=== PATIENT | male | born 1935 | race Caucasian/White ===

== ENCOUNTER 2020-11-12 14:31 | Emergency (ER) | payer OTHER, BC, MEDICARE, SELFPAY ==
--- NOTE | ~2020-11-12 | XR_ITS ---
EXAMINATION: XR CHEST CLINICAL INFORMATION: Chest pain COMPARISON: None available. Correlation with prior x-ray report 01/03/2011 TECHNIQUE: 2 views of the chest were obtained. FINDINGS: Normal cardiomediastinal silhouette. Lungs are well-expanded. Mild streaky bibasilar opacities suggesting atelectasis. No focal consolidation. No effusion, edema or pneumothorax. Thoracic spine degeneration. XR/XR chest 2V IMPRESSION: Mild bibasilar streaky opacities suggesting atelectasis. No dense consolidation.
--- NOTE | ~2020-11-12 | US_ITS ---
EXAMINATION: US VENOUS ULTRASOUND WITH DOPPLER LOWER EXTREMITY, LEFT CLINICAL INFORMATION: Swelling left leg COMPARISON: None TECHNIQUE: Ultrasound of the deep veins is performed from the hip to the calf with compression sonography and color and pulse Doppler assessment. Spectral analysis with color-flow imaging is performed. FINDINGS: There is a areas of chronic partially adherent thrombus in the distal left superolateral femoral vein. The caliber of the superficial vein is smaller as well. The popliteal, posterior tibial and the peroneal veins appear patent. The right common femoral vein is patent as well. If the patient's symptoms persist, followup ultrasound in 5 days 7 days might be of value to exclude proximal propagation from a non-visualized calf vein. US/US venous duplex LE LT IMPRESSION: Non occlusive adherent thrombus seen throughout the left superficial femoral vein. The findings are suggestive of likely previous DVT, ? treated are not. There are no previous exam available for comparison. The left calf veins are patent. No Calzada's cyst seen.
--- NOTE | ~2020-11-12 | CT_ITS ---
EXAMINATION: CT CHEST ANGIOGRAM PE PROTOCOL CLINICAL INFORMATION: , Reason for Exam SOb/CP, h/o lung cancer, r/o PE COMPARISON: No prior studies available. TECHNIQUE: Volumetric imaging was performed through the chest. Reformatted coronal and sagittal imaging was performed. 3-D MIP images performed at a dedicated separate workstation. This CT examination was performed using dose optimization techniques as appropriate, variously including the following: *Automated exposure control *Adjustment of mA and/or kV according to patient size (this includes techniques or standardized protocols for targeted exams where dose is matched to indication/reason for exam; i.e. extremities or head) *Use of iterative reconstruction technique CONTRAST: 55 mL Omnipaque 350 injected. DLP: 243 FINDINGS: PULMONARY ARTERIES: There are no central emboli. Some of the small peripheral branches are not opacified probably artifactual flow artifact. No CT evidence of infarct. LINES/TUBES: None LUNGS: Lung Parenchyma: There is bilateral diffuse advanced pulmonary emphysema. Lung Nodules:There is left apical pleural-based density with adjacent scar probably atelectasis 1.3 x 1.6 cm. AIRWAYS: Trachea and bronchi are normal. PLEURA: No pleural effusion or pneumothorax. MEDIASTINUM AND BENJA: The visualized thyroid gland is unremarkable. No mediastinal, hilar or axillary lymphadenopathy. There is no mediastinal mass. VESSELS: Aorta is heavily calcified nonaneurysmal. HEART AND PERICARDIUM: Heart is normal in size. There is no pericardial effusion. There are coronary calcifications. CHEST WALL, LOWER NECK, SURROUNDING SOFT TISSUES: Normal VISUALIZED ABDOMEN: There is left adrenal nodule measures 2 x 1.4 cm, not well characterized on this single phase CT scan. This has newly developed since prior CT of June 2013. BONES: The visualized bony thorax is within normal limits. CT/CT angio chest PE protocol IMPRESSION: 1. No central emboli. Nonopacification of distal branches felt to be an artifact. 2. Advanced pulmonary emphysema. 3. Left apical pleural-based 1.6 cm opacity with adjacent scar most likely atelectasis. Attention to short-term follow-up CT scan in 3 months recommended. 4. Left adrenal nodule 1.4 x 2 cm, not well characterized on this single phase CT scan. Attention to follow-up adrenal imaging with CT scan or MRI recommended. 5. Coronary calcification.
[2020-11-12 14:39] VITALS: BP 122/70; BP 160/80; PULSE 64; PULSE 67; RESP 14; TEMP 36.6; O2SAT 98; BMI 19.7
--- NOTE | 2020-11-12 14:51 | ECG_ITS ---
Test Reason : CHEST PAIN Blood Pressure : / mmHG Vent. Rate : 057 BPM Atrial Rate : 057 BPM P-R Int : 248 ms QRS Dur : 082 ms QT Int : 418 ms P-R-T Axes : 088 058 048 degrees QTc Int : 406 ms Sinus bradycardia with 1st degree A-V block Abnormal ECG No previous ECGs available Referred By: Marley Metcalf Electronically Signed By:GANGA SANCHES
--- NOTE | 2020-11-12 14:52 | ED_ITS ---
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 Patient tells me in the last month he was seen by his primary care doctor and worked up outpatient for this diagnosis of cancer. He made the decision to decline any chemo and radiation due to how advanced the cancer was. He tells me today he was at rest and he started to have some left chest discomfort which took his breath away. He laid down but continued to have some pain and that is when he called the ambulance. He does report some mild shortness of breath. No cough, fevers, chills, abdominal pain, vomiting, diarrhea. He does have some left calf discomfort but denies any injury or trauma to that. Related Data Home Medications Medication Instructions Recorded Confirmed atenolol 1 tab PO DAILY 11/12/20 11/12/20 fluticasone propionate 2 spray INTRANASAL DAILY 11/12/20 11/12/20 levothyroxine 1 tab PO DAILY 11/12/20 11/12/20 losartan 50 mg PO DAILY 11/12/20 11/12/20 lovastatin 1 tab PO BEDTIME 11/12/20 11/12/20 omeprazole 1 cap PO DAILY 11/12/20 11/12/20 Previous Rx's Medication Instructions Recorded oxycodone 2.5 mg PO Q6H PRN #10 tab 11/12/20 Allergies Allergy/AdvReac Type Severity Reaction Status Date / Time No Known Allergies Allergy Unverified 03/23/20 14:54 Review of Systems Review of Systems: Yes all other systems are reviewed and are negative Constitutional: Constitutional: Reports no additional constitutional complaints, Denies body ache(s), Denies chills, Denies fever(s), Denies hea dache(s) and Denies weakness Eyes: Eyes: Reports no additional eye complaints and Denies change in vision ENT: Reports system reviewed and no additional complaints, except as documented, Denies dizziness, Denies headache(s), Denies nasal congestion, Denies nasal discharge and Denies neck pain Cardiovascular: Cardiovascular: Reports no additional cardiovascular complaints, Reports chest pain, Denies leg edema and Reports dyspnea Respiratory: Respiratory: Reports no additional respiratory complaints, Denies cough and Reports dyspnea Gastrointestinal: Gastrointestinal: Reports no additional gastrointestinal complaints, Denies abdominal pain, Denies diarrhea, Denies nausea and Denies vomiting Genitourinary: Genitourinary: Denies urinary incontinence Musculoskeletal: Musculoskeletal: Reports no additional musculoskeletal complaints, Denies back pain, Denies arthralgias, Denies joint swelling, Denies neck pain, Denies numbness and Denies tingling Integumentary/Breasts: Skin/Breast: Reports system reviewed and no additional complaints, except as docu and Denies rash Neurologic: Reports system reviewed and no additional complaints, except as documented, Denies Abnormal speech present, Denies dizziness, Denies h eadache(s), Denies numbness, Denies tingling and Denies weakness PMFSH Past Medical History Attestation statement: The following information was validated with the patient. Source: old records reviewed and nursing notes reviewed Medical History GERD (gastroesophageal reflux disease) HTN (hypertension) Hypothyroid Right arm fracture Social History Social History Alcohol intake: current Alcohol intake frequency: holidays/special occasions only Smoking Status: Former smoker Smoked in Last 30 Days: No Use of substances other than those prescribed or required for medical reasons: No Advance Directives: No Advance Directives Information Provided: No Physical Exam Vital Signs: Vital Signs: Last Vital Signs Temp 97.9 F 11/12/20 16:00 Pulse 57 11/12/20 16:00 Resp 16 11/12/20 16:00 BP 172/50 H 11/12/20 16:00 Pulse Ox 100 11/12/20 16:00 Body Mass Index 19.7 Const: General: cooperative, healthy appearing, comfortable and no acute distress Orientation/consciousness: patient oriented x3 Limitations: no limitations HENMT: Head: Yes normal to inspection Ears: hearing grossly normal bilaterally General nose exam: Normal external nose present Face and sinus: Yes normal facial exam Mouth: Normal oral and palatal mucosa present Throat: Yes posterior oropharynx normal Eyes: General: appearance normal, both eyes and all related structures Pupils: Equal, round and reactive pupils present Neck: Neck: Yes normal visual inspection Chest: Other: Left-sided chest splinting, tender to palpate over the ribs. No crepitus or ecchymosis or deformity noted Chest palpation & inspection: normal inspection of the chest Resp: Effort & Inspection: normal respiratory effort Auscultation: clear to auscultation bilaterally Cardio: Rate: regular rate Rhythm: regular rhythm Peripheral pulses: Peripheral pulses 2+ throughout GI: Inspection: Yes normal to inspection Palpation (GI): Soft to palpation and nontender Auscultation: normal bowel sounds Back/Spine/Pelvis: Thoracic/Lumbar Spine: thoracic and lumbar spine normal to inspection Skin: General skin exam: no rashes or lesions noted Neuro: General: patient oriented x3, no focal motor deficits and normal sensation to monofilament Cranial nerves: Yes Equal, round and reactive pupils present Cognition (Neuro): normal cognition Speech: No Abnormal speech present Gait exam (Neuro): Normal gait present Motor exam (neuro): 5/5 motor strength present throughout Extrem: Other: Tenderness to the left calf. No swelling or erythema. No pain or tenderness or swelling to the right calf General: Yes normal to inspection Course Course Course Narrative: 85 yo male here with left-sided chest wall pain which is worsened with deep breathing, palpation with some associated shortness of breath. No cough, fever, chills. Also complaining of some left calf pain with no associated swelling. Patient tells me all his symptoms began this morning. He he was recently diagnosed with lung cancer with Mets and is not going through with any treatment. Will need labs, EKG, chest x-ray, ultrasound left lower extremity. 1409-chest x-ray shows no acute finding. EKG shows no ischemic changes. Labs show mild hyponatremia likely secondary to mild dehydration. Will give gentle hydration. K 5.2 but lab reports mild hemolysis. Initial troponin 4.5. Will plan for repeat due to onset of symptoms. Ultrasound shows a nonocclusive thrombus throughout the left superficial femoral vein. Does not appear acute. Due to history will check CTA to rule out PE. 2044-repeat troponin pending. Doesn't want to wait to have repeat NA drawn. CTA shows no PE. Pulmonary emphysema. Left apical pleural based opacity (pt aware of) left adrenal nodule (pt aware of). Discussed findings with the patient and family. Pain more pleuritic and musculoskeletal on exam. May be secondary to known underlying lung malignancy, or secondary to recent biopsies at secondary facility. Patient would like to go home. He tells me he wants to be around his family at this time due to his recent diagnosis as he is not pursing treatment for his cancer. 2114-Sign out to Shahla THURMAN pending above. Medical Decision Making MDM Narrative Medical decision making narrative: DVT, ACS, PE, pneumothorax, PNA NO acute DVT seen on venous US. Less likely ACS with EKG which shows no ischemic changes and troponin x 2 delta Less likely PE with negative CTA Less likely PTX/PNA with normal CXR, CTA Lab Data Result diagrams: 11/12/20 15:14 11/12/20 15:14 Labs: Lab Results 11/12/20 11/12/20 11/12/20 Range/Units 15:14 15:14 15:14 WBC 7.2 (4.8-10.8) X10*3/uL RBC 3.77 L (4.60-5.80) X10*6/uL Hgb 11.5 L (14.0-18.0) g/dl Hct 34.0 L (42-52) % MCV 90.2 (80-98) fL MCH 30.5 (27.0-33.0) pg MCHC 33.8 (31.0-36.0) g/dl RDW 14.4 (11.0-16.0) % Plt Count 216 (160-400) X10*3/uL MPV 9.1 L (9.4-12.4) fL Immature Gran % (Auto) 0.3 (0.0-0.4) % Neut % (Auto) 74.7 H (45-73) % Lymph % (Auto) 14.4 L (20-40) % [place] % (Auto) 9.4 (2-11) % Eos % (Auto) 0.8 (0-4) % Baso % (Auto) 0.4 (0-2) % Lymph # (Auto) 1.0 L (1.2-4.9) X10*3/uL [place] # (Auto) 0.7 (0.1-1.2) X10*3/uL Eos # (Auto) 0.1 (0.0-0.4) X10*3/uL Baso # (Auto) 0.0 (0.0-0.2) X10*3/uL Abs Immat Gran (auto) 0.02 (0.00-0.03) X10*3/uL Absolute Neuts (auto) 5.4 (2.0-8.3) X10*3/uL Absolute Nucleated RBC 0.000 (0.0-0.012) X10*3/uL Nucleated RBC % (auto) 0.0 (0.0-0.2) /100WBC PT 12.1 (10.8-13.0) SEC INR 1.0 (0.9-1.1) APTT 31.8 (24.1-38.0) SEC D-Dimer < 200 NG/ML Sodium 130 L (135-145) mmol/L Potassium 5.2 H (3.3-5.1) mmol/L Chloride 98 (96-108) mmol/L Carbon Dioxide 24 (22-29) mmol/L Anion Gap 13 (12-20) BUN 22 H (9-16) mg/dL Creatinine 1.15 (0.5-1.4) mg/dL Estim Creat Clear Calc 38.0 Estimated GFR > 60 Random Glucose 122 H (60-115) mg/dL Calcium 9.6 (8.4-10.2) mg/dL Magnesium 2.3 (1.6-2.6) mg/dL Total Bilirubin 0.6 (0.0-1.0) mg/dL Direct Bilirubin 0.2 (0.0-0.5) mg/dL AST 47 H (5-37) U/L ALT 41 H (0-40) U/L Alkaline Phosphatase 128 H (39-117) U/L Troponin I High Sens (<3.5-35.0) ng/L Total Protein 8.5 H (6.5-8.0) g/dL Albumin 4.0 (3.5-5.0) g/dL Urine Color Urine Appearance Urine pH (5.0-8.0) Ur Specific [place] (1.005-1.025) Urine Protein (NEG-TRACE) MG/DL Urine Glucose (UA) (NEG) MG/DL Urine Ketones (NEG) MG/DL Urine Blood (NEG) Urine Nitrite (NEG) Ur Leukocyte Esterase (NEG) COVID-19 (JIMMIE) (Negative) COVID-19 Clin Com 11/12/20 11/12/20 11/12/20 Range/Units 15:14 15:14 16:35 WBC (4.8-10.8) X10*3/uL RBC (4.60-5.80) X10*6/uL Hgb (14.0-18.0) g/dl Hct (42-52) % MCV (80-98) fL MCH (27.0-33.0) pg MCHC (31.0-36.0) g/dl RDW (11.0-16.0) % Plt Count (160-400) X10*3/uL MPV (9.4-12.4) fL Immature Gran % (Auto) (0.0-0.4) % Neut % (Auto) (45-73) % Lymph % (Auto) (20-40) % [place] % (Auto) (2-11) % Eos % (Auto) (0-4) % Baso % (Auto) (0-2) % Lymph # (Auto) (1.2-4.9) X10*3/uL [place] # (Auto) (0.1-1.2) X10*3/uL Eos # (Auto) (0.0-0.4) X10*3/uL Baso # (Auto) (0.0-0.2) X10*3/uL Abs Immat Gran (auto) (0.00-0.03) X10*3/uL Absolute Neuts (auto) (2.0-8.3) X10*3/uL Absolute Nucleated RBC (0.0-0.012) X10*3/uL Nucleated RBC % (auto) (0.0-0.2) /100WBC PT (10.8-13.0) SEC INR (0.9-1.1) APTT (24.1-38.0) SEC D-Dimer NG/ML Sodium (135-145) mmol/L Potassium (3.3-5.1) mmol/L Chloride (96-108) mmol/L Carbon Dioxide (22-29) mmol/L Anion Gap (12-20) BUN (9-16) mg/dL Creatinine (0.5-1.4) mg/dL Estim Creat Clear Calc Estimated GFR Random Glucose (60-115) mg/dL Calcium (8.4-10.2) mg/dL Magnesium (1.6-2.6) mg/dL Total Bilirubin (0.0-1.0) mg/dL Direct Bilirubin (0.0-0.5) mg/dL AST (5-37) U/L ALT (0-40) U/L Alkaline Phosphatase (39-117) U/L Troponin I High Sens 4.5 (<3.5-35.0) ng/L Total Protein (6.5-8.0) g/dL Albumin (3.5-5.0) g/dL Urine Color YELLOW Urine Appearance CLEAR Urine pH 6.5 (5.0-8.0) Ur Specific [place] 1.010 (1.005-1.025) Urine Protein TRACE (NEG-TRACE) MG/DL Urine Glucose (UA) NEG (NEG) MG/DL Urine Ketones NEG (NEG) MG/DL Urine Blood NEG (NEG) Urine Nitrite NEG (NEG) Ur Leukocyte Esterase NEG (NEG) COVID-19 (JIMMIE) Negative (Negative) COVID-19 Clin Com See Note 11/12/20 Range/Units 20:42 WBC (4.8-10.8) X10*3/uL RBC (4.60-5.80) X10*6/uL Hgb (14.0-18.0) g/dl Hct (42-52) % MCV (80-98) fL MCH (27.0-33.0) pg MCHC (31.0-36.0) g/dl RDW (11.0-16.0) % Plt Count (160-400) X10*3/uL MPV (9.4-12.4) fL Immature Gran % (Auto) (0.0-0.4) % Neut % (Auto) (45-73) % Lymph % (Auto) (20-40) % [place] % (Auto) (2-11) % Eos % (Auto) (0-4) % Baso % (Auto) (0-2) % Lymph # (Auto) (1.2-4.9) X10*3/uL [place] # (Auto) (0.1-1.2) X10*3/uL Eos # (Auto) (0.0-0.4) X10*3/uL Baso # (Auto) (0.0-0.2) X10*3/uL Abs Immat Gran (auto) (0.00-0.03) X10*3/uL Absolute Neuts (auto) (2.0-8.3) X10*3/uL Absolute Nucleated RBC (0.0-0.012) X10*3/uL Nucleated RBC % (auto) (0.0-0.2) /100WBC PT (10.8-13.0) SEC INR (0.9-1.1) APTT (24.1-38.0) SEC D-Dimer NG/ML Sodium (135-145) mmol/L Potassium (3.3-5.1) mmol/L Chloride (96-108) mmol/L Carbon Dioxide (22-29) mmol/L Anion Gap (12-20) BUN (9-16) mg/dL Creatinine (0.5-1.4) mg/dL Estim Creat Clear Calc Estimated GFR Random Glucose (60-115) mg/dL Calcium (8.4-10.2) mg/dL Magnesium (1.6-2.6) mg/dL Total Bilirubin (0.0-1.0) mg/dL Direct Bilirubin (0.0-0.5) mg/dL AST (5-37) U/L ALT (0-40) U/L Alkaline Phosphatase (39-117) U/L Troponin I High Sens 5.3 (<3.5-35.0) ng/L Total Protein (6.5-8.0) g/dL Albumin (3.5-5.0) g/dL Urine Color Urine Appearance Urine pH (5.0-8.0) Ur Specific [place] (1.005-1.025) Urine Protein (NEG-TRACE) MG/DL Urine Glucose (UA) (NEG) MG/DL Urine Ketones (NEG) MG/DL Urine Blood (NEG) Urine Nitrite (NEG) Ur Leukocyte Esterase (NEG) COVID-19 (JIMMIE) (Negative) COVID-19 Clin Com Imaging Data Chest x-ray: Attestation: I personally reviewed and interpreted this imaging study as follows: Radiologist's impression: EXAMINATION: XR CHEST CLINICAL INFORMATION: Chest pain COMPARISON: None available. Correlation with prior x-ray report 01/03/2011 TECHNIQUE: 2 views of the chest were obtained. FINDINGS: Normal cardiomediastinal silhouette. Lungs are well-expanded. Mild streaky bibasilar opacities suggesting atelectasis. No focal consolidation. No effusion, edema or pneumothorax. Thoracic spine degeneration. XR/XR chest 2V IMPRESSION: Mild bibasilar streaky opacities suggesting atelectasis. No dense consolidation. Venous US: Attestation: I personally reviewed and interpreted this imaging study as follows: Radiologist's impression: EXAMINATION: US VENOUS ULTRASOUND WITH DOPPLER LOWER EXTREMITY, LEFT CLINICAL INFORMATION: Swelling left leg COMPARISON: None TECHNIQUE: Ultrasound of the deep veins is performed from the hip to the calf with compression sonography and color and pulse Doppler assessment. Spectral analysis with color-flow imaging is performed. FINDINGS: There is a areas of chronic partially adherent thrombus in the distal left superolateral femoral vein. The caliber of the superficial vein is smaller as well. The popliteal, posterior tibial and the peroneal veins appear patent. The right common femoral vein is patent as well. If the patient's symptoms persist, followup ultrasound in 5 days 7 days might be of value to exclude proximal propagation from a non-visualized calf vein. US/US venous duplex LE LT IMPRESSION: Non occlusive adherent thrombus seen throughout the left superficial femoral vein. The findings are suggestive of likely previous DVT, ? treated are not. There are no previous exam available for comparison. The left calf veins are patent. No Calzada's cyst seen. CT scan - chest: Attestation: I personally reviewed and interpreted this imaging study as follows: Radiologist's impression: 1. No central emboli. Nonopacification of distal branches felt to be an artifact. 2. Advanced pulmonary emphysema. 3. Left apical pleural-based 1.6 cm opacity with adjacent scar most likely atelectasis. Attention to short-term follow-up CT scan in 3 months recommended. 4. Left adrenal nodule 1.4 x 2 cm, not well characterized on this single phase CT scan. Attention to follow-up adrenal imaging with CT scan or MRI recommended. 5. Coronary calcification. ECG Data Attestation: I personally reviewed and interpreted this ECG as follows: Interpretation: Sinus bradycardia with a first-degree AV block, normal QRS, normal QTC Discharge Plan Discharge Clinical Impression: Acute chest wall pain Patient Disposition: Home, Self-Care Instructions: Chest Wall Pain (ED) Additional Instructions: Increase fluids, rest You may take tylenol for pain. Oxycodone for stronger pain not relieved with tylenol. Prescriptions: New oxycodone 5 mg tablet 2.5 mg PO Q6H PRN (Reason: pain) Qty: 10 RF: 0 No Action losartan 50 mg tablet 50 mg PO DAILY RF: 0 lovastatin 40 mg tablet 1 tab PO BEDTIME RF: 0 levothyroxine 25 mcg tablet 1 tab PO DAILY RF: 0 omeprazole 20 mg capsule,delayed release(DR/EC) 1 cap PO DAILY RF: 0 fluticasone propionate 50 mcg/actuation spray,suspension 2 spray intranasal DAILY RF: 0 atenolol 50 mg tablet 1 tab PO DAILY RF: 0 Referrals: Physician,None [Primary Care Provider] - 2 days
[2020-11-12 15:21] LABS: MANUAL DIFF FLAG NO
[2020-11-12 15:22] LABS: Basophils Percent Auto 0.4 % (0-2); Eosinophils Absolute Auto 0.1 X10*3/uL (0.0-0.4); Eosinophils Percent Auto 0.8 % (0-4); Hemoglobin 11.5 g/dl (14.0-18.0); Imm Gran Abs Auto 0.02 X10*3/uL (0.00-0.03); Imm Gran Pct Auto 0.3 % (0.0-0.4); Lymphocytes Percent Auto 14.4 % (20-40); Mean Corpuscular HGB Conc 33.8 g/dl (31.0-36.0); Mean Corpuscular Hemoglobin 30.5 pg (27.0-33.0); Mean Corpuscular Volume 90.2 fL (80-98); Mean Platelet Volume 9.1 fL (9.4-12.4); Monocytes Absolute Auto 0.7 X10*3/uL (0.1-1.2); Monocytes Percent Auto 9.4 % (2-11); Neutrophils Absolute Auto 5.4 X10*3/uL (2.0-8.3); Neutrophils Percent Auto 74.7 % (45-73); Platelet Count 216 X10*3/uL (160-400); Red Blood Count 3.77 X10*6/uL (4.60-5.80); Red Cell Distribution Width 14.4 % (11.0-16.0); White Blood Count 7.2 X10*3/uL (4.8-10.8)
[2020-11-12 15:31] LABS: Prothrombin Time 12.1 SEC (10.8-13.0)
[2020-11-12 15:34] LABS: Partial Thromboplastin Time 31.8 SEC (24.1-38.0)
[2020-11-12 15:42] LABS: COVID-19 Test Negative (Negative); IDNOW Serial# 9DD0AD1C
[2020-11-12 15:56] LABS: Alanine Aminotransferase 41 U/L (0-40); Alkaline Phosphatase 128 U/L (39-117); Anion Gap 13 (12-20); Aspartate Amino Transferase 47 U/L (5-37); Bilirubin Direct 0.2 mg/dL (0.0-0.5); Bilirubin Total 0.6 mg/dL (0.0-1.0); Blood Urea Nitrogen 22 mg/dL (9-16); Calcium 9.6 mg/dL (8.4-10.2); Carbon Dioxide 24 mmol/L (22-29); Chloride 98 mmol/L (96-108); Estimated Glomerular Filt Rate > 60; Glucose Random 122 mg/dL (60-115); Magnesium 2.3 mg/dL (1.6-2.6); Potassium 5.2 mmol/L (3.3-5.1); Sodium 130 mmol/L (135-145); Total Protein 8.5 g/dL (6.5-8.0)
[2020-11-12 15:57] LABS: Troponin-I High Sensitivity 4.5 ng/L (<3.5-35.0)
[2020-11-12 16:00] VITALS: BP 172/50; PULSE 57; RESP 16; TEMP 36.6; O2SAT 100
[2020-11-12 16:07] LABS: D Dimer < 200 NG/ML
[2020-11-12 16:56] LABS: Glucose Urine UA NEG (NEG); Leukocyte Esterase Urine NEG (NEG); Nitrite Urine NEG (NEG); PH 6.5 (5.0-8.0); Urine Blood NEG (NEG); Urine Ketones NEG (NEG); Urine Protein TRACE MG/DL (NEG-TRACE)
[2020-11-12 17:07] LABS: Appearance Urine CLEAR; Color Urine YELLOW
[2020-11-12] MEDS: 0.9 % Sodium Chloride 500 ML 999 ML IV (20:55)
[2020-11-12 21:14] LABS: Troponin-I High Sensitivity 5.3 ng/L (<3.5-35.0)
[2020-11-12 21:50] VITALS: BP 174/48; PULSE 61; RESP 18; O2SAT 100
[2020-11-12] MEDS: oxyCODONE HCl Immed Release 5 MG TABLET 2.5 MG PO (22:17)
== END 2020-11-12 22:21 | disposition home or self-care (01) ==
PROVIDERS: Nurse Practitioner Family; Emergency Provider Emergency Medicine Emergency Medical Services
DX: R07.9 Chest pain, unspecified (principal); I10 Essential (primary) hypertension; R60.0 Localized edema; Z20.822 Contact with and (suspected) exposure to COVID-19; Z79.899 Other long term (current) drug therapy; Z87.891 Personal history of nicotine dependence
CPT/HCPCS: 36415; 71046; 71275; 80048; 80076; 81003; 83735; 84484; 85025; 85379; 85610; 85730; 87635; 93005; 93971; 99285